=== PATIENT | female | born 1960 | race African-American/Black ===

== ENCOUNTER → 2017-04-15 | Outpatient (CLI) | payer OTHER ==
[~2017-04-15] MED LIST: LISINOPRIL AND1 TA1 PO; LISINOPRIL/HCTZ1 TA3 PO; LORTAB 5/3251 TAB PO
--- NOTE | 2017-04-15 17:11 | RADIOLOGY REPORT PS360 ---
[id number] VIEWS HISTORY: Left shoulder pain with sclerosis of the clavicle BONY SCLEROSIS ORDERING PHYSICIAN: Christina Valderrama APRN PATIENT AGE: 56 years COMPARISON: 02/29/2008 FINDINGS: There is significant widening with bony sclerosis of the proximal and mid clavicle as before. The enlargement and sclerosis appear somewhat more prominent distally. There is however, noted some decreased density along the superior aspect of the mid shaft of the clavicle. This is not readily apparent on the previous exam and could be related to some developing lytic change. Would consider CT for further evaluation. There is a focal cortical lucency involving the distal aspect of the clavicle also not readily apparent on the previous study consistent with an area of erosion. No acute fracture or dislocation. IMPRESSION: 1. Abnormally thickened proximal and mid aspect of the clavicle as before. The thickening is somewhat more prominent distally. There is also a questionable lucent area along the mid aspect of the clavicle superiorly and there is a focal lucent lesion involving the distal aspect of the clavicle. The findings could be related to fibrous dysplasia. Padget disease is also considered. The lucency distally could be related to erosive arthritic change. No acute fracture. Consider CT for more thorough evaluation due to the change in appearance compared to the previous exam. Total body bone scan may also be of further value
== END ==
LOC: RAD 15:36
DX: Q78.2 Osteopetrosis (principal)

== ENCOUNTER 2017-06-05 08:27 | Day surgery (SDC) | payer OTHER ==
[~2017-06-05] VITALS: Ht 160 cm; Wt 88.0 kg
[2017-06-05 09:46] LABS: HEMOGLOBIN 12.4 g/dL (12.2-16.2); LYMPH # 1.2 K/mm3 (0.7-4.5); LYMPH % 29.9 % (10-50.0)
[2017-06-05 10:08] LABS: BUN 17 mg/dL (7-18); GFR (ESTIMATED) 64 ML/MIN (59-)
--- NOTE | 2017-06-05 12:27 | Operative Note ---
Colonoscopy ([place]) Procedure date: 06/05/17 Date of : 56 Procedure:Colonoscopy Colonoscopy with cold snare polypectomy Indications: Mrs. Dejesus is a 56-year-old female who is here for follow-up surveillance/ screening colonoscopy. She did have a colonoscopy in February [address] Mandujano and had 3 diminutive polyps removed (hyperplastic polyps 3) and was given 10 year surveillance interval. The patient does have chronic idiopathic constipation. Linzess resulted in diarrhea. She does state that she takes a probiotic and fiber. She reports no abdominal pain, weight loss, change in her bowel habits or rectal bleeding. She reports no family history of colon cancer. Performing Provider: Sander Coleman MD Referrring Provider: David Garibay M.D. Sedation: MAC sedation Procedure: Prior to the procedure, a history and physical exam was performed, and patient medications and allergies were reviewed. The risks and benefits of the procedure and the sedation options and risks were discussed with the patient. All questions were answered and informed consent was obtained. Patient identification and proposed procedure were verified by the physician and the nurse. The patient was placed in a left lateral decubitus position. Throughout the procedure, the patient's blood pressure, pulse, and oxygen saturations were monitored continuously. Findings: On digital rectal examination there was normal rectal tone. There were no external hemorrhoids. The colonoscope was introduced through the anal canal to the rectum and advanced to the cecum. The ileocecal valve and appendiceal orifice were identified. The scope was advanced a short distance into the ileum which appeared grossly normal. The scope was then withdrawn into the colon. There was marked melanosis coli throughout the colon. There was a single 7 mm polyp in the descending colon removed via cold snare polypectomy. Upon retroflexion within the rectum there were grade 1 internal hemorrhoids. Impressions: 1. Descending colon polyp 2. Marked melanosis coli 3. Grade 1 internal hemorrhoids Recommendations: Will follow up the polyp histology and recommend repeat screening/surveillance colonoscopy again in 5-10 years based upon the histology. The patient does have marked melanosis coli. This is reversible. I will discuss use of stimulant laxatives/herbal laxatives and consider use of Trulance. Complications: None EBL (ml): 0 at 1223
--- NOTE | 2017-06-05 13:15 | Anesthesia Record ---
Anesthesia Record Part I Total IV fluids: 800 EBL (ml): 0 Urine Output: 0 B/P: 113/59 % SaO2: 99 Pulse: 53 Resps: 16 Temp: 98.1 Patient is: Drowsy, Stable Stable to PACU at: 1228 (sds) at 1315
--- NOTE | 2017-06-05 13:15 | Anesthesia Record ---
Anesthesia Record Part II Discharge time: 1228 Destination: Same day surgery PACU nurse assessment review? Yes Patient is: Stable Anesthesia complications? No at 1319
--- NOTE | 2017-06-05 14:30 | CONSULT NOTE ---
Standard Demographics Patient Demo Date of Consultation: 06/05/17 Referring Provider: Pipe Coleman MD Reason for Consultation: bradycardia PRIMARY DIAGNOSIS: Outpatient colonoscopy Problem list Problem list: 1. Hypertension 2. Sinus bradycardia 3. History of colonic polyps 4. History of traumatic ankle injury status post surgical correction History of present illness: History of present illness: 56-year-old black female with history of hypertension was in the hospital today as an outpatient for screening colonoscopy due to history of prior colonic polyps. Patient denies any recent chest pain, pressure, tightness or shortness of breath. She denies any history of syncope or near syncopal symptoms. She does exercise 5 days a week walking at a pace of 4 miles per hour. Cardiology consulted due to abnormal electrocardiogram and sinus bradycardia. Patient has noted a resting heart rate in the 40s and 50s in the past without symptoms. Prior to the procedure she was noted to have brief bouts of heart rate into the high 30s. An electrocardiogram obtained at that time shows sinus bradycardia with early repolarization abnormalities. No acute ST segment abnormality abnormalities noted. Post procedure the patient continued to have sinus bradycardia with rates into the 30s and 40s with minimal stimulation. When sitting up her heart rate comes into the 50s. Patient denies any history of diabetes, hyperlipidemia, tobacco use or family history of coronary artery disease. Past Medical History: General: Hypertension Yes CVA No Seizures No TB No COPD No Asthma No Diabetes No Angina No IL No Hyperlipidemia No Urinary No Cancer No Rheumatic H.D. No Ulcers No MRSA No GB Disease No Other LEFT SHOULDER DEFORMITY Past Surgical HX: Previous Surgery?Y Dental Surgery HYSTERECTOMY 2007 COLONOSCOPY Allergies Coded Allergies: orphenadrine (From NORFLEX) (Intermediate, I-RASH 02/18/16) Home medications: Reported Medications Lisinopril & Hctz (Lisinopril-Hctz 10-12.5 MG Tab) 1 TAB PO DAILY #30 Current Medications: Current Medications Lactated Ringer's 1,000 ML .Q25H ONE IV Immunization HX DT/Tetanus 5-10 Years Flu 2014-FSN Pneumonia Never Had Family history Family HX Family Hx Insignificant No Diabetes Yes CAD No Hypertension Yes Hyperlipidemia No Cancer Yes TB No Social Hx: Smoking HX Tobacco No Alcohol Alcohol: No Hx of Drug Use Drug Use? No Patien't marital status is single Patient's support system is good Review of systems: Constitutional No: no symptoms reported. Respiratory No: no symptoms reported. Cardiovascular No no symptoms reported Gastrointestinal/Abdominal No no symptoms reported Genitourinary No: no symptoms reported. Musculoskeletal No: no symptoms reported. Neurological No: no symptoms reported. Exam: Admission Vital Signs: 1ST Vital Signs Result Date Time Pulse Ox 100 06/05 0852 B/P 175/83 06/05 0852 Temp 97.7 06/05 0852 Pulse 48 06/05 0852 Resp 18 06/05 0852 Last Vital Signs: Vital Signs Result Date Time B/P 146/70 06/05 1350 Pulse 45 06/05 1350 Resp 18 06/05 1350 Pulse Ox 99 06/05 1315 Temp 98.1 06/05 1315 Exam General appearance: alert, awake, no acute distress Neck: no carotid bruit, no JVD Cardiovascular: regular rate & rhythm, bradycardia Respiratory: clear to auscultation, good air movement ABD: soft, no tenderness Extremities: moves all, no peripheral edema Neuro: alert, intact, oriented, speech clear Laboratory data: Laboratory Tests 06/05/17 0930: Sodium 144, Potassium 3.8, Chloride 108 H, Carbon Dioxide 27, BUN 17, Creatinine 0.9, Estimated GFR (MDRD) 64, Glucose 81, Calcium 9.0, Total Bilirubin 0.6, AST 20, ALT 24, Alkaline Phosphatase 103, Creatine Kinase 109, CK -MB (CK-2) Rel Index 0.6, CK and CKMB Interp 0.7, Troponin I < 0.02, Total Protein 7.8, Albumin 3.3 L, Globulin 4.5 H, Albumin/Globulin Ratio 0.7 L, WBC 3.9 L, RBC 4.30, Hgb 12.4, Hct 38.2, MCV 88.7, RDW 14.1, Plt Count 269, MPV 8.4 , Gran % 61.4, Gran # 2.4, Lymphocytes % 29.9, Monocytes % 6.2, Eosinophils % 1.9, Basophils % 0.7, Lymphocytes # 1.2, Monocytes # 0.2, Eosinophils # 0.1, Basophils # 0.0, PUBS MCHC 32.5, MCH 28.8 Plan: Assessment: 1. Sinus bradycardia, asymptomatic. 2. Hypertension 3. History of colonic polyps with screening colonoscopy today. Recommendations: 1. Obtain a 24-hour Holter monitor to evaluate patient's chronotropic response. 2. Obtain an echocardiogram to history of hypertension and now bradycardia. 3. Patient to follow-up in the office in one to 2 weeks for further evaluation. Consider routine stress test to evaluate chronotropic response. 4. Patient is cleared from a cardiology standpoint for discharge home. at 1431
[2017-06-05 15:05] VITALS: BP 142/75
== END 2017-06-05 14:20 | disposition home or self-care (01) ==
LOC: SDC 08:27
PROVIDERS: Internal Medicine Gastroenterology
PROC: 0DBM8ZX Excision of Descending Colon, Via Natural or Artificial Opening Endoscopic, Diagnostic (ICD-10-PCS; principal; 2017-06-05 09:30)
DX: Z12.11 Encounter for screening for malignant neoplasm of colon (principal); D12.4 Benign neoplasm of descending colon; K64.0 First degree hemorrhoids; K63.89 Other specified diseases of intestine